=== PATIENT | female | born 2000 | race African-American/Black ===

== ENCOUNTER 2024-09-13 11:08 | Emergency (ER) | payer SELFPAY ==
[~2024-09-13] VITALS: Ht 157.5 cm; Wt 55.0 kg
[2024-09-13 11:27] VITALS: TEMP 36.9; O2SAT 99
[2024-09-13] MEDS ORDERED: CELE100C MT (13:23)
[2024-09-13 13:52] VITALS: BP 123/85; PULSE 85; RESP 16; O2SAT 99
== END 2024-09-13 13:53 | disposition home or self-care (01) ==
LOC: ER 11:08
DX: H72.92 Unspecified perforation of tympanic membrane, left ear (principal)
CPT/HCPCS: 99283

== ENCOUNTER 2024-12-13 11:47 | Emergency (ER) | payer SELFPAY ==
[~2024-12-13] VITALS: Ht 160 cm; Wt 60.0 kg
[~2024-12-13 11:47] MED LIST: CELE100C MT
[2024-12-13 11:48] VITALS: O2SAT 100
[2024-12-13 11:55] VITALS: BP 92/58; PULSE 61; RESP 14; TEMP 36.7; O2SAT 100
[2024-12-13 12:52] LABS: PLATELET 223 x1000/uL (130-400); RED BLOOD CELL COUNT 3.98 mill/uL (4.2-5.4); RED CELL DISTRIBUTION WIDTH 12.0 % (11.6-14.6)
[2024-12-13 13:06] LABS: CREATININE 0.6 mg/dL (0.6-1.0); TROPONIN I HIGH SENSITIVITY < 4 ng/L (3.0-34); UREA NITROGEN BLOOD 7 mg/dL (9-23)
== END 2024-12-13 14:10 | disposition home or self-care (01) ==
LOC: ER 11:47
DX: R07.89 Other chest pain (principal); Z79.1 Long term (current) use of non-steroidal anti-inflammatories (NSAID)
CPT/HCPCS: 36415; 71045; 80048; 84484; 85027; 93005; 99285